=== PATIENT | male | born 1980 | race Hispanic/Latino ===

== ENCOUNTER 2016-12-05 21:44 | Emergency (ER) | payer OTHER ==
[~2016-12-05] VITALS: Ht 180.3 cm; Wt 78.9 kg
[2016-12-05] MEDS ORDERED: ALBUTEROL 90 MCG/ACT 8GM HFA INHALER As Ordered ONE (22:46)
[2016-12-05] MEDS ORDERED: CLARITHROMYCIN 250 MG TAB PO SCH (23:00)
--- NOTE | 2016-12-05 23:08 | EDDOCDS ---
Physician Documentation [facility] Name: Donell Hager Age: 36 yrs Sex: Male : 1980 Arrival Date: 12/05/2016 Time: 21:44 Bed I8 / 16 Private MD: Dennis - Complete Info On Cds Disposition: 12/05/16 22:36 Discharged to Home/Self Care. Impression: Acute bronchitis. - Condition is Stable. - Discharge Instructions: Acute Bronchitis. - Prescriptions for Biaxin 500 mg Oral Tablet - take 1 tablet by ORAL route every 12 hours for 10 days; 20 tablet. - Medication Reconciliation, Local Pharmacy Hours form. - Follow up: JOHAN Arellano; When: 4 - 5 days; Reason: Recheck today's complaints, Continuance of care. - Problem is an ongoing problem. - Symptoms are unchanged. - Notes: inhaler 2 puffs every 4 hours as needed cough Historical: - Allergies: no known allergies; - Home Meds: 1. Tessalon Perles 100 mg Oral cap as needed 2. Mucinex DM 30-600 mg oral Tb12 every 12 hours 3. multivitamin Oral cap 1 tablet daily - PMHx: none; - PSHx: Knee surgery- Left; PRK Eye Surgery; - Social history: Smoking status: Patient states was never smoker of tobacco. No barriers to communication noted, The patient speaks fluent Maltese. - Family history: Not pertinent. - : The pt / caregiver states he / she is not on anticoagulants. Home medication list is obtained from the patient. - Exposure Risk Screening:: None identified. Vital Signs: 12/05 21:46 BP 149 / 84; Pulse 87; Resp 18 S; Temp 97.8(O); Pulse Ox 99% on R/A; Weight 78.93 kg / gr2 174.01 lbs (R); Height 71 in. (180.34 cm) (R); Pain 6/10; 22:51 BP 136 / 78; Pulse 88; Resp 20; Temp 98.0(O); Pulse Ox 99% on R/A; Pain 0/10; jmb 21:46 Body Mass Index 24.27 (78.93 kg, 180.34 cm) gr2 MDM: 22:33 Clarithromycin 500 mg PO once ordered. ke 22:33 Ventolin Inhaler 2 puffs Inhalation once ordered. ke Administered Medications: 22:51 Drug: Ventolin 2 puffs [Ventolin HFA 90 mcg/actuation aerosol inhaler (2 puffs)] Route: jmb Inhalation; 23:07 Drug: Clarithromycin 500 mg [clarithromycin 500 mg tablet (1 tabs)] Route: PO; mariob Signatures: Fidel Lopes FNP FNP Amie Rose RN RN rs3 Josh Morales RN RN jmb MTDD
--- NOTE | 2016-12-05 23:08 | EDDOCDS ---
Nurse's Notes [facility] Name: Donell Hager Age: 36 yrs Sex: Male : 1980 Arrival Date: 12/05/2016 Time: 21:44 Bed I8 / 16 Private MD: Other - Complete Info On Cds Diagnosis: Acute bronchitis Presentation: 12/05 21:49 Presenting complaint: Patient states: sore throat, cough for 10 days. was seen at [address] given Mucinex, Cepacol. not resolved. Was seen again on last Friday. Given Tessalon pearls. symptoms not resolved. Adult Sepsis Screening: The patient does not have new or worsening altered mentation. Patient's respiratory rate is less than 22. Systolic blood pressure is greater than 100. Patient has a qSOFA score of 0- Negative Sepsis Screen. Suicide/Homicide risk assessment- the patient denies having any suicidal and/or homicidal ideations and does not present with any other emotional, behavioral or mental health complaints. 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 Transition of care: patient was not received from another setting of care. 21:49 Acuity: TEE Level 4 3 21:49 Method Of Arrival: Walkin/Carried/Asstd rs3 Triage Assessment: 21:53 General: Appears in no apparent distress. Pain: Location: sore throat. [facility] Offered previously. Historical: - Allergies: no known allergies; - Home Meds: 1. Tessalon Perles 100 mg Oral cap as needed 2. Mucinex DM 30-600 mg oral Tb12 every 12 hours 3. multivitamin Oral cap 1 tablet daily - PMHx: none; - PSHx: Knee surgery- Left; PRK Eye Surgery; - Social history: Smoking status: Patient states was never smoker of tobacco. No barriers to communication noted, The patient speaks fluent Latvian. - Family history: Not pertinent. - : The pt / caregiver states he / she is not on anticoagulants. Home medication list is obtained from the patient. - Exposure Risk Screening:: None identified. Screenin:51 Screening information is obtained from the patient. Fall risk: No risks identified. jmb Assistance ADL's: requires no assistance with activities of daily living. Abuse/DV Screen: The patient / caregiver reports he/she is: not in a situation that causes fear, pain or injury. Nutritional screening: No deficits noted. Advance Directives: Currently, there is no health care proxy. There is no active DNR order. There is no living will. There is no Power of Labor Relations Consultant. home support is adequate. Assessment: 22:51 General: Patient instructed on discharge instructions. Patient asked if there were any jmb questions regarding discharge, patient stated no. Patient signed discharge instructions. Patient discharged in stable condition. . Vital Signs: 21:46 BP 149 / 84; Pulse 87; Resp 18 S; Temp 97.8(O); Pulse Ox 99% on R/A; Weight 78.93 kg gr2 (R); Height 71 in. (180.34 cm) (R); Pain 6/10; 22:51 BP 136 / 78; Pulse 88; Resp 20; Temp 98.0(O); Pulse Ox 99% on R/A; Pain 0/10; jmb 21:46 Body Mass Index 24.27 (78.93 kg, 180.34 cm) gr2 Vitals: 21:46 Log In Time: December 05, 2016 at 21:46. gr2 ED Course: 21:46 Patient visited by Ismael Lobato. gr2 21:46 Other - Complete Info On Cds is Private Physician. gr2 21:46 Patient moved to Waiting gr2 21:47 Patient visited by Ismael Lobato. gr2 21:48 Patient moved to Pre RCE gr2 21:51 Triage Initiated rs3 22:26 [facility] ke 22:26 Patient visited by Fidel Lopes FNP. ke 22:26 Patient visited by Fidel Lopes FNP. ke 22:26 Patient moved to I8 / 16 ld5 22:36 JOHAN Arellano is Referral Physician. ke 22:51 The patient / caregiver is instructed regarding the plan of care and ED course. jmb 22:51 No IV's were initiated during this patient's visit. No procedures done that require jmb assistance. Administered Medications: 22:51 Drug: Ventolin 2 puffs [Ventolin HFA 90 mcg/actuation aerosol inhaler (2 puffs)] Route: jmb Inhalation; 23:07 Drug: Clarithromycin 500 mg [clarithromycin 500 mg tablet (1 tabs)] Route: PO; jmb Order Results: There are currently no results for this order. Outcome: 22:36 Discharge ordered by Provider. donato 22:51 Discharge Assessment: Patient awake, alert and oriented x 3. No cognitive and/or jmb functional deficits noted. Patient verbalized understanding of disposition instructions. Patient awake and alert. obeys commands, Oriented to person, place and time. Patient verbalized understanding of disposition instructions. Patient has no functional deficits. patient administered narcotics - no. The following High Risk Discharge criteria are identified: None. Discharged to home ambulatory. Condition: stable. Discharge instructions given to patient, Instructed on discharge instructions, follow up and referral plans. medication usage, Demonstrated understanding of instructions, medications, Pt was receptive of discharge instructions/ teaching. No special radiology studies were completed. Property sent home with patient. 23:07 Patient left the ED. boy Signatures: Fidel Lopes, TEACHER MUSIC TEACHER MUSIC Amie RoseRN RN rs3 Karyn Vail RN RN ld5 Ismael Lobato 2 Josh MoralesRN KARINA brunson SHANI
--- NOTE | 2016-12-08 00:08 | EDDOCDS ---
Physician Documentation [facility] Name: Donell Hager Age: 36 yrs Sex: Male : 1980 Arrival Date: 12/05/2016 Time: 21:44 Bed I8 / 16 Private MD: Dennis - Complete Info On Cds Disposition: 12/05/16 22:36 Discharged to Home/Self Care. Impression: Acute bronchitis. - Condition is Stable. - Discharge Instructions: Acute Bronchitis. - Prescriptions for Biaxin 500 mg Oral Tablet - take 1 tablet by ORAL route every 12 hours for 10 days; 20 tablet. - Medication Reconciliation, Local Pharmacy Hours form. - Follow up: JOHAN Arellano; When: 4 - 5 days; Reason: Recheck today's complaints, Continuance of care. - Problem is an ongoing problem. - Symptoms are unchanged. - Notes: inhaler 2 puffs every 4 hours as needed cough Historical: - Allergies: no known allergies; - Home Meds: 1. Tessalon Perles 100 mg Oral cap as needed 2. Mucinex DM 30-600 mg oral Tb12 every 12 hours 3. multivitamin Oral cap 1 tablet daily - PMHx: none; - PSHx: Knee surgery- Left; PRK Eye Surgery; - Social history: Smoking status: Patient states was never smoker of tobacco. No barriers to communication noted, The patient speaks fluent Portuguese. - Family history: Not pertinent. - : The pt / caregiver states he / she is not on anticoagulants. Home medication list is obtained from the patient. - Exposure Risk Screening:: None identified. Vital Signs: 12/05 21:46 BP 149 / 84; Pulse 87; Resp 18 S; Temp 97.8(O); Pulse Ox 99% on R/A; Weight 78.93 kg / gr2 174.01 lbs (R); Height 71 in. (180.34 cm) (R); Pain 6/10; 22:51 BP 136 / 78; Pulse 88; Resp 20; Temp 98.0(O); Pulse Ox 99% on R/A; Pain 0/10; jmb 21:46 Body Mass Index 24.27 (78.93 kg, 180.34 cm) gr2 MDM: 22:33 Clarithromycin 500 mg PO once ordered. ke 22:33 Ventolin Inhaler 2 puffs Inhalation once ordered. ke 23:43 [facility] Payment Agreement was scanned into [employer] and attached to record. mamie 23:43 Financial registration complete. mamie 12/06 12:12 T-Sheet-- Draft Copy was scanned into [employer] and attached to record. gb Administered Medications: 12/05 22:51 Drug: Ventolin 2 puffs [Ventolin HFA 90 mcg/actuation aerosol inhaler (2 puffs)] Route: jmb Inhalation; 23:07 Drug: Clarithromycin 500 mg [clarithromycin 500 mg tablet (1 tabs)] Route: PO; jmb Signatures: Kathy Hansen, Reg Reg Fidel Mcconnell, BLIND SLAT STAPLING MACHINE OPERATOR Amie OlivierRN RN rsJosh ParsonsRN RN Inocencia Kate The chart was reviewed and I authenticate all verbal orders and agree with the evaluation and treatment provided.Attachments: 23:43 [facility] Payment Agreement [facility] 12/06 12:12 T-Sheet-- Draft Copy gb Chart Complete MTDD
--- NOTE | 2016-12-08 00:08 | EDDOCDS ---
Nurse's Notes [facility] Name: Donell Hager Age: 36 yrs Sex: Male : 1980 Arrival Date: 12/05/2016 Time: 21:44 Bed I8 / 16 Private MD: Other - Complete Info On Cds Diagnosis: Acute bronchitis Presentation: 12/05 21:49 Presenting complaint: Patient states: sore throat, cough for 10 days. was seen at [address] given Mucinex, Cepacol. not resolved. Was seen again on last Friday. Given Tessalon pearls. symptoms not resolved. Adult Sepsis Screening: The patient does not have new or worsening altered mentation. Patient's respiratory rate is less than 22. Systolic blood pressure is greater than 100. Patient has a qSOFA score of 0- Negative Sepsis Screen. Suicide/Homicide risk assessment- the patient denies having any suicidal and/or homicidal ideations and does not present with any other emotional, behavioral or mental health complaints. 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 Transition of care: patient was not received from another setting of care. 21:49 Acuity: TEE Level 4 3 21:49 Method Of Arrival: Walkin/Carried/Asstd rs3 Triage Assessment: 21:53 General: Appears in no apparent distress. Pain: Location: sore throat. HIV screening [facility] for this visit Offered previously. Historical: - Allergies: no known allergies; - Home Meds: 1. Tessalon Perles 100 mg Oral cap as needed 2. Mucinex DM 30-600 mg oral Tb12 every 12 hours 3. multivitamin Oral cap 1 tablet daily - PMHx: none; - PSHx: Knee surgery- Left; PRK Eye Surgery; - Social history: Smoking status: Patient states was never smoker of tobacco. No barriers to communication noted, The patient speaks fluent Swedish. - Family history: Not pertinent. - : The pt / caregiver states he / she is not on anticoagulants. Home medication list is obtained from the patient. - Exposure Risk Screening:: None identified. Screenin:51 Screening information is obtained from the patient. Fall risk: No risks identified. jmb Assistance ADL's: requires no assistance with activities of daily living. Abuse/DV Screen: The patient / caregiver reports he/she is: not in a situation that causes fear, pain or injury. Nutritional screening: No deficits noted. Advance Directives: Currently, there is no health care proxy. There is no active DNR order. There is no living will. There is no Power of Computer Art Instructor. home support is adequate. Assessment: 22:51 General: Patient instructed on discharge instructions. Patient asked if there were any jmb questions regarding discharge, patient stated no. Patient signed discharge instructions. Patient discharged in stable condition. . Vital Signs: 21:46 BP 149 / 84; Pulse 87; Resp 18 S; Temp 97.8(O); Pulse Ox 99% on R/A; Weight 78.93 kg gr2 (R); Height 71 in. (180.34 cm) (R); Pain 6/10; 22:51 BP 136 / 78; Pulse 88; Resp 20; Temp 98.0(O); Pulse Ox 99% on R/A; Pain 0/10; jmb 21:46 Body Mass Index 24.27 (78.93 kg, 180.34 cm) gr2 Vitals: 21:46 Log In Time: December 05, 2016 at 21:46. gr2 ED Course: 21:46 Patient visited by Ismael Lobato. gr2 21:46 Other - Complete Info On Cds is Private Physician. gr2 21:46 Patient moved to Waiting gr2 21:47 Patient visited by Ismael Lobato. gr2 21:48 Patient moved to Pre RCE gr2 21:51 Triage Initiated rs3 22:26 [facility]opes FNP [facility] ke 22:26 Patient visited by Fidel Lopes FNP. ke 22:26 Patient visited by Fidel Lopes FNP. ke 22:26 Patient moved to I8 / 16 ld5 22:36 MIN Arellano is Referral Physician. ke 22:51 The patient / caregiver is instructed regarding the plan of care and ED course. jmb 22:51 No IV's were initiated during this patient's visit. No procedures done that require jmb assistance. 23:43 [facility] Payment Agreement was scanned into [employer] and attached to record. gjb 12/06 12:12 T-Sheet-- Draft Copy was scanned into [employer] and attached to record. gb Administered Medications: 12/05 22:51 Drug: Ventolin 2 puffs [Ventolin HFA 90 mcg/actuation aerosol inhaler (2 puffs)] Route: jmb Inhalation; 23:07 Drug: Clarithromycin 500 mg [clarithromycin 500 mg tablet (1 tabs)] Route: PO; jmb Order Results: There are currently no results for this order. Outcome: 22:36 Discharge ordered by Provider. ke 22:51 Discharge Assessment: Patient awake, alert and oriented x 3. No cognitive and/or jmb functional deficits noted. Patient verbalized understanding of disposition instructions. Patient awake and alert. obeys commands, Oriented to person, place and time. Patient verbalized understanding of disposition instructions. Patient has no functional deficits. patient administered narcotics - no. The following High Risk Discharge criteria are identified: None. Discharged to home ambulatory. Condition: stable. Discharge instructions given to patient, Instructed on discharge instructions, follow up and referral plans. medication usage, Demonstrated understanding of instructions, medications, Pt was receptive of discharge instructions/ teaching. No special radiology studies were completed. Property sent home with patient. 23:07 Patient left the ED. jmb Signatures: Kathy Hansen, Reg Reg gb Fidel Lopes, MUSIC ORCHESTRATOR MUSIC ORCHESTRATOR Amie RoseRN RN rs3 Karyn Vail,RN RN ld5 Ismael Lobato gr2 Josh Morales,RN RN Inocencia Kate Chart Complete MTDD
--- NOTE | 2016-12-08 00:08 | EDDOCDS ---
Physician Documentation [facility] Name: Donell Hager Age: 36 yrs Sex: Male : 1980 Arrival Date: 12/05/2016 Time: 21:44 Bed I8 / 16 Private MD: Dennis - Complete Info On Cds Disposition: 12/05/16 22:36 Discharged to Home/Self Care. Impression: Acute bronchitis. - Condition is Stable. - Discharge Instructions: Acute Bronchitis. - Prescriptions for Biaxin 500 mg Oral Tablet - take 1 tablet by ORAL route every 12 hours for 10 days; 20 tablet. - Medication Reconciliation, Local Pharmacy Hours form. - Follow up: JOHAN Arellano; When: 4 - 5 days; Reason: Recheck today's complaints, Continuance of care. - Problem is an ongoing problem. - Symptoms are unchanged. - Notes: inhaler 2 puffs every 4 hours as needed cough Historical: - Allergies: no known allergies; - Home Meds: 1. Tessalon Perles 100 mg Oral cap as needed 2. Mucinex DM 30-600 mg oral Tb12 every 12 hours 3. multivitamin Oral cap 1 tablet daily - PMHx: none; - PSHx: Knee surgery- Left; PRK Eye Surgery; - Social history: Smoking status: Patient states was never smoker of tobacco. No barriers to communication noted, The patient speaks fluent Indian. - Family history: Not pertinent. - : The pt / caregiver states he / she is not on anticoagulants. Home medication list is obtained from the patient. - Exposure Risk Screening:: None identified. Vital Signs: 12/05 21:46 BP 149 / 84; Pulse 87; Resp 18 S; Temp 97.8(O); Pulse Ox 99% on R/A; Weight 78.93 kg / gr2 174.01 lbs (R); Height 71 in. (180.34 cm) (R); Pain 6/10; 22:51 BP 136 / 78; Pulse 88; Resp 20; Temp 98.0(O); Pulse Ox 99% on R/A; Pain 0/10; jmb 21:46 Body Mass Index 24.27 (78.93 kg, 180.34 cm) gr2 MDM: 22:33 Clarithromycin 500 mg PO once ordered. ke 22:33 Ventolin Inhaler 2 puffs Inhalation once ordered. ke 23:43 [facility] Payment Agreement was scanned into [employer] and attached to record. mamie 23:43 Financial registration complete. mamie 12/06 12:12 T-Sheet-- Draft Copy was scanned into [employer] and attached to record. gb Administered Medications: 12/05 22:51 Drug: Ventolin 2 puffs [Ventolin HFA 90 mcg/actuation aerosol inhaler (2 puffs)] Route: jmb Inhalation; 23:07 Drug: Clarithromycin 500 mg [clarithromycin 500 mg tablet (1 tabs)] Route: PO; jmb Signatures: Kathy Hansen, Reg Reg Fidel Mcconnell, COMPUTER OPERATIONS SPECIALIST Amie OlivierRN RN rsJosh ParsonsRN RN Inocencia Kate The chart was reviewed and I authenticate all verbal orders and agree with the evaluation and treatment provided.Attachments: 23:43 [facility] Payment Agreement [facility] 12/06 12:12 T-Sheet-- Draft Copy gb Chart Complete MTDD
== END 2016-12-05 23:07 | disposition home or self-care (01) ==
LOC: M ED 21:44
DX: J20.9 Acute bronchitis, unspecified (principal); J06.9 Acute upper respiratory infection, unspecified

== ENCOUNTER → 2017-01-07 | Outpatient (CLI) | payer OTHER ==
[~2017-01-07] MED LIST: CONRAY-43 43% 50ML VIAL (Q9960) As Ordered ONE
--- NOTE | 2017-01-07 09:45 | REP ---
MRI ARTHROGRAM LEFT SHOULDER: TECHNIQUE: Axial T2 fat sat, coronal oblique T1, T2 fat sat, post arthrogram axial T1 fat sat, proton density, coronal oblique T1 fat sat, T2 sat, sagittal oblique T2 fat sat, ABER T1 fat sat. There is ill-defined high signal on T2-weighted images in the supraspinatus tendon compatible with tendinopathy/tendinitis. I do not see evidence of a rotator cuff tear. There are mild hypertrophic degenerative changes of the acromioclavicular joint with mild subchondral marrow edema on both sides of the joint. Acromion is not hooked in shape. Biceps tendon is within the bicipital groove with no tenosynovitis. There is no Hill-Sachs deformity. Deltoid muscle demonstrates no abnormal signal. Biceps labral complex is intact. There is no evidence of a labral tear. Tiny subchondral cyst is seen in the posterior bony glenoid. There is no bone marrow edema or occult fracture. There is a normal amount of joint fluid. 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 Supraspinatus tendinopathy/tendinitis without evidence of a rotator cuff tear or labral tear. Signed by Mateusz Cooper MD 01/07/2017 12:30 P
--- NOTE | 2017-01-07 12:31 | REP ---
LEFT SHOULDER ARTHROGRAM: The procedure was performed under the direct supervision of Dr. Cooper. The benefits and risks including, but not limited to pain, infection, bleeding, and anaphylaxis were explained to the patient and informed consent was obtained. The left glenohumeral joint space was localized using fluoroscopic guidance. The skin was prepped and draped in a sterile fashion. 1% lidocaine was used as a local anesthetic. Using fluoroscopy guidance a #22 gauge needle was inserted and advanced into the joint. 0.5 mL of Conray 43 was injected to verify placement. 11 mL of a solution containing 20 mL of sterile saline and 0.15 mL of ProHance was injected. The needle was removed and the patient was taken to MRI for post procedural imaging. The patient tolerated the procedure well and there were no immediate complications. 1 second of fluoroscopic time was utilized for this procedure. Reviewed by VIRGINIA Davis 01/07/2017 12:56 PEdited and Signed by Mateusz Cooper MD 01/07/2017 03:29 P
== END ==
LOC: M RADPRO 07:11
PROVIDERS: ATTEND Family Medicine
DX: M65.812 Other synovitis and tenosynovitis, left shoulder (principal); M19.012 Primary osteoarthritis, left shoulder
CPT/HCPCS: 23350; 73223; 77002; A9576; Q9960